=== PATIENT | female | born 1980 | race Hispanic/Latino ===

== ENCOUNTER 2016-12-13 09:22 | Inpatient (IN) | payer MEDICAID ==
--- NOTE | 2016-12-12 22:00 | History and Physical Report ---
History of Present Illness Date of examination: 12/12/16 Date of admission: 12/13/16 Chief complaint: here for cs and tl History of present illness: Pt presents for repeat c/s with TL.All risks,benefits and alternatives were d/w pt and questions were addressed and answered. Consents were signed and placed on the chart. Past History : 4 Term Births: 2 Premature Births: 0 Living Children: 2 Para: 2 Prev : 2 Elect. Ab: 0 Spont. Ab: 1 Ectopics: 0 # 1 Delivery date: 2000 Delivery type: SAB Comments: 16 weeks, s/p fall down stairs D&C # 2 Delivery date: 01/17/2005 Weeks Gestation: 42 Delivery type: Hours of labor: 38 Anesthesia type: epidural Delivery location: [facility] Sex: Female weight: 8-7 Name: Padmaja # 3 Delivery date: 05/31/2015 Weeks Gestation: 37 Delivery type: Anesthesia type: Spinal Delivery location: [facility] Infant Sex: male weight: 6.69 Name: Billy Comments: pre-eclampsia/eclampsia Past Medical History: Anemia Depression Hypotension left breast cyst removed - age 17 Past Surgical History: Reviewed history from 05/31/2015 and no changes required: c/s x2 Past Medical History Anesthesia Complications: negative Anemia: positive Autoimmune Disorder: negative Bleeding Disorder: negative Blood Transfusions: negative Breast Disease: negative Diabetes: negative Heart Disease: negative Hypertension: positive, Pre-e x 2 Hepatitis/Liver Disease: negative Kidney Disease/UTI: negative Neurologic/Epilepsy/Migraines: negative Phlebitis/Varicosities: negative Psychiatric: positive, depression Pulmonary Disease/Asthma: negative Thyroid Disease: negative Hospitalizations: negative 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 Patient has been counseled to quit. Infection History Hx of STD: none HIV Risk Eval: no Hepatitis B Risk Eval: low risk Personal hx. of genital herpes: no Partner hx. of genital herpes: no Rash, Viral, or Febrile illness since last LMP? no Varicella/Chicken Pox Status: Previous Disease TB Risk: no Infection History Comments: FOB family + Hep B, pt states he takes shot every 5- 10 years Genetic History ADVANCED MATERNAL AGE Congenital Heart Defect: Mom: no Dad: no Janie Disease: Mom: no Dad: no Thalassemia Mom: no Dad: no Neural Tube Defect Mom: no Dad: no Down's Syndrome Mom: no Dad: no Milton-Sachs Mom: no Dad: no Sickle Cell Disease/Trait Mom: no Dad: no Hemophilia Mom: no Dad: no Muscular Dystrophy Mom: no Dad: no Cystic Fibrosis Mom: no Dad: no Cerrillos Chorea Mom: no Dad: no Mental Retardation Mom: no Dad: no Fragile X Mom: no Dad: no Other Genetic/Chromosomal Disorder Mom: no Dad: yes Comments: G6PD, brother born with "blood cancer" Child w/other defect Mom: no Dad: no Enviromental Exposures Xray Exposure: no Medication, drug, or alcohol use since LMP: no Chemical/Other Exposure: no Exposure to Cat Liter: yes Hx of Parvovirus (Fifth Disease): no Occupational Exposure to Children: none Past History Past Medical History: other (see hpi) Past Surgical History: section (x2), 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 [employer]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 Family/Genetic History: other (see hpi) - Obstetrical History Expected Date of Delivery: 12/16/16 Actual Gestation: 39 Week(s) 3 Day(s) : 4 Para: 2 Hx # Term Pregnancies: 2 Spontaneous Abortions: 1 Number of Living Children: 2 Medications and Allergies Allergies Allergy/AdvReac Type Severity Reaction Status Date / Time nickel Allergy Hives Verified 02/25/15 20:11 cephalexin monohydrate AdvReac Intermediate Swelling Verified 10/27/16 11:54 [From Keflex] Home Medications Medication Instructions Recorded Confirmed Last Taken Type Pnv with Ca,No.72/Iron/FA 1 tab PO DAILY 05/31/15 10/27/16 10/23/16 09:00 History [ Plus Tablet] 1 Review of Systems All systems: negative - Physical Exam Breasts: Positive: deferred Cardiovascular: Normal S1, Normal S2 Lungs: Positive: Clear to auscultation, Normal air movement Abdomen: Positive: normal appearance, soft. Negative: distention, tenderness, guarding Genitourinary (Female): Positive: other (deferred) - Obstetrical FHR: auscultation normal Results All other labs normal. Assessment and Plan - Patient Problems (1) Previous delivery affecting Status: Acute Plan to address problem: -to OR for repeat c/s -all risk, benefits, and alternatives were d/w pt and questions were addressed and answered -consents signed and placed on the chart (2) Sterilization Status: Acute Plan to address problem: -pt desires permanent sterilization -all risk, benefits and alternatives were d/w pt -Consents signed and placed on the chart.
[~2016-12-13 09:22] MED LIST: GARAMYCIN 0 MG in NACL 0.9% 100 ML IV SCH
[2016-12-13] MEDS ORDERED: LACTATED RINGERS 1,000 ML ONE (10:04)
[2016-12-13 10:19] LABS: Basophils % (Auto) 0.6 % (0.0-1.8); Eosinophils % (Auto) 0.9 % (0.0-4.3); Hematocrit 36.9 % (30.3-42.9); Hemoglobin 12.1 gm/dl (10.1-14.3); Mean Corpuscular HGB Conc 33 % (30-34); Mean Corpuscular Hemoglobin 29 pg (28-32); Mean Corpuscular Volume 88 fl (79-97); Platelet Count 219 K/mm3 (140-440); Red Blood Count 4.19 M/mm3 (3.65-5.03); Red Cell Distribution Width 15.4 % (13.2-15.2)
--- NOTE | 2016-12-13 10:37 | Anesthesia Consultation ---
Anesthesia Consult and Med Hx Date of service: 12/13/16 - Airway Anesthetic Teeth Evaluation: Good ROM Head & Neck: Adequate Mental/Hyoid Distance: Adequate Mallampati Class: Class II Intubation Access Assessment: Probably Good - Pre-Operative Health Status ASA Pre-Surgery Classification: ASA2 Proposed Anesthetic Plan: Epidural, Spinal - Pulmonary Hx Asthma: No COPD: No Hx Pneumonia: No - Cardiovascular System Hx Hypertension: No - Central Nervous System Hx Seizures: No Hx Psychiatric Problems: No - Gastrointestinal Hx Gastroesophageal Reflux Disease: Yes - Endocrine Hx Renal Disease: No Hx End Stage Renal Disease: No Hx Hypothyroidism: No Hx Hyperthyroidism: No - Hematic Hx Anemia: No Hx Sickle Cell Disease: No - Other Systems Hx Alcohol Use: No
--- NOTE | 2016-12-13 10:38 | Anesthesia Day of Surgery ---
Anesthesia Day of Surgery - Day of Surgery Patient Examined: Yes Patient H&P Reviewed: Yes Patient is NPO: Yes
[2016-12-13] MEDS ORDERED: CLEOCIN 600 MG/50 mL 50 ML IV NR (11:00)
[2016-12-13] MEDS ORDERED: ZOFRAN IV PRN ×2 (11:00→18:45)
[2016-12-13] MEDS ORDERED: DILAUDID IV PRN (11:00)
[2016-12-13] MEDS ORDERED: PITOCin/NS 20 UNIT/1000ML DRIP 1,000 ML IV NR (11:00)
[2016-12-13] MEDS ORDERED: SODIUM CHLORIDE FLUSH SYRINGE 10 ML IV PRN (11:00)
[2016-12-13] MEDS ORDERED: PEPCID IV NR (11:00)
[2016-12-13] MEDS ORDERED: NARCAN 0.4 MG/1 ML IV PRN ×2 (11:00→13:07)
[2016-12-13] MEDS ORDERED: LACTATED RINGERS 1,000 ML IV NR (11:00)
[2016-12-13] MEDS ORDERED: TORADOL IV PRN (11:00)
[2016-12-13] MEDS ORDERED: REGLAN IV NR (11:00)
[2016-12-13] MEDS ORDERED: BICITRA PO NR (11:00)
[2016-12-13] MEDS ORDERED: BENADRYL IV PRN (11:00)
[2016-12-13] MEDS ORDERED: NACL 0.9% IR ONE (11:40)
[2016-12-13] MEDS ORDERED: WATER FOR IRRIG STERILE IR ONE (11:40)
[2016-12-13] MEDS ORDERED: MORPHINE ONE (11:46)
[2016-12-13] MEDS ORDERED: GENTAMICIN IV NR (12:00)
[2016-12-13] MEDS ORDERED: SODIUM CHLORIDE IV NR (12:00)
[2016-12-13] MEDS ORDERED: TUCKS PAD TP PRN (13:07)
[2016-12-13] MEDS ORDERED: LANSINOH TP PRN (13:07)
--- NOTE | 2016-12-13 13:20 | Operative Report ---
Operative Report Operative Report: Date of procedure: 12/13/2016 Pre-operative diagnosis: 39 weeks gestation Previous section 2 Desires permanent sterilization Post-operative diagnosis: Same Procedure name(s): Repeat low transverse section via Pfannenstiel skin incision Bilateral tubal ligation via modified Kartik method Surgeon: Dr. Lew Chronic Specialist: Ms. Aisha Meléndez CST Anesthesia: Spinal EBL: 600 mL Urine output: 50 mL clear urine at the end of the procedure Fluids: 1300 mL Findings: Liveborn female weight 7 lbs. 12 oz. Apgars of 9 and 9 at one and 5 minutes Normal fallopian tubes and ovaries bilaterally Indications: Patient presents for repeat section. All risks benefits and alternatives were discussed with the patient. Patient was given ample time to ask questions all of which were addressed. Consents were signed and placed on the chart. Patient also desired permanent sterilization. Again all risks benefits and alternatives were discussed with patient. Patient was given ample time to ask questions. Consents were signed and placed on the chart. Patient was taken to the operating room for repeat section with tubal ligation. Procedure: Patient was taking to the operating room. Patient was then prepped and draped in sterile fashion after anesthesia was found to be adequate. A low transverse skin incision was made with the scalpel through previous incisional scar and carried down to the underlying layer of fascia with the Bovie. The fascia was then incised in the midline and this incision was extended bilaterally with the Bovie. The superior aspect of the fascia was grasped with Cori clamps tented upward and dissected off of the anterior rectus muscles with the scalpel. In similar fashion the inferior aspect of the fascia was grasped with Cori clamps tented upward and dissected off of the anterior rectus muscles. The rectus muscles were then sharply divided in the midline. The peritoneum was identified and entered into sharply. The Jong retractor was placed. A lower transverse uterine incision was made with the scalpel and extended bilaterally with the bandage scissors. Artificial rupture of membranes was performed yielding amniotic fluid. The 's head was then delivered atraumatically. The anterior shoulder and rest of infant delivered without difficulty. The umbilical cord was clamped x2. The cord was cut. The was then placed in sterile bassinet. Cord blood was collected The placenta was manually extracted in its entirety. The uterus was exteriorized and cleared of all clots and debris. The uterine incision was closed using 0 Vicryl in a running locking fashion. Several figure of 8 sutures were placed along the uterine incision with 0 Vicryl with excellent hemostasis being noted. Attention was then turned to the fallopian tubes. The fallopian tube was grasp with the Blairs clamp, suture ligated, and transected. This was done bilaterally. The ostia of the tube bilaterally was cauterized with the Bovie. The posterior cul-de-sac was copiously irrigated. The uterus was returned to the abdomen. The Jong retractor was removed from the abdomen. The gutters were also irrigated. The anterior rectus muscles were reapproximated using 3-0 Vicryl. The anterior rectus fascia was reapproximated using 0 Vicryl in a running fashion. The subcuticular fat was reapproximated using 2-0 Vicryl in a running fashion. The skin was reapproximated with 4-0 Monocryl with a subcuticular stitch. The patient tolerated the procedure well. Sponge lap and needle counts were all correct x3. Patient was taken to the recovery room awake and in stable condition.
[2016-12-13] MEDS ORDERED: D5LR 1,000 ML IV SCH (14:00)
[2016-12-13] MEDS ORDERED: PITOCin/NS 20 UNIT/1000ML DRIP 1,000 ML IV SCH (14:00)
[2016-12-13] MEDS ORDERED: CLEOCIN 600 MG/50 mL 50 ML IV SCH ×2 (14:00→18:00)
[2016-12-13] MEDS: PERCOCET 5/325 PO PRN ×2 (16:15→22:55)
[2016-12-13] MEDS: MOTRIN PO PRN (22:55)
[2016-12-14] MEDS: PERCOCET 5/325 PO PRN ×5 (04:41→20:38)
[2016-12-14] MEDS: MOTRIN PO PRN ×3 (04:42→18:00)
[2016-12-14] MEDS ORDERED: CLEOCIN 600 MG/50 mL 50 ML IV SCH (05:00)
--- NOTE | 2016-12-14 12:04 | Progress Note ---
Assessment and Plan - Patient Problems (1) Previous delivery affecting Current Visit: Yes Status: Acute (2) Status post delivery Current Visit: Yes Status: Acute Plan to address problem: Patient doing well we'll continue post protocol Subjective - Subjective Date of service: 12/14/16 Interval history: Patient refused post op H/H last pm Patient reports: appetite normal, voiding normally, pain well controlled Objective - Vital Signs Latest vital signs: Vital Signs Temp Pulse Pulse Pulse Resp BP BP 12/14/16 08:05 98.3 F 80 16 108/51 12/14/16 05:20 98.2 F 93 H 18 113/66 12/14/16 01:50 98.2 F 94 H 20 106/64 12/13/16 21:00 97.8 F 94 H 20 108/63 12/13/16 16:15 20 12/13/16 16:00 97.4 F L 72 18 97/52 12/13/16 14:15 97.7 F 76 13 107/61 12/13/16 14:00 84 12 105/60 12/13/16 13:45 76 13 110/59 12/13/16 13:30 81 14 108/52 12/13/16 13:25 84 12 107/51 12/13/16 13:20 83 14 112/56 12/13/16 13:15 97.6 F 85 14 110/46 Pulse Ox 12/14/16 08:05 12/14/16 05:20 12/14/16 01:50 12/13/16 21:00 12/13/16 16:15 12/13/16 16:00 12/13/16 14:15 94 12/13/16 14:00 94 12/13/16 13:45 95 12/13/16 13:30 95 12/13/16 13:25 95 12/13/16 13:20 97 12/13/16 13:15 97 Intake and Output 12/13/16 12/14/16 12/14/16 22:59 06:59 14:59 Intake Total 1270 240 500 Output Total 600 1500 Balance 670 -1260 500 Intake: IV 550 D5lr 1,000 ml @ 125 mls/ 500 hr IV DIRECT CARLOS Rx#: [id number] CLEOCIN 600 MG/50 mL 50 50 ML @ 100 mls/hr IV Q8H CARLOS Rx#:[id number] Oral 720 500 Intake, Free Water 240 Output: Urine 600 1500 Void 600 Indwelling Catheter 1500 Other: Total, Intake Amount 360 500 Total, Output Amount 600 1500 # Voids Void 1 1 - Exam Breasts: Present: deferred Cardiovascular: Present: Regular rate Lungs: Present: Normal air movement Abdomen: Present: normal appearance, soft Uterus: Present: normal Incision: Present: normal, dry
[2016-12-14] MEDS ORDERED: BOOSTRIX IM ONE (13:08)
[2016-12-14 13:34] LABS: Hematocrit 28.9 % (30.3-42.9); Hemoglobin 9.7 gm/dl (10.1-14.3)
[2016-12-15] MEDS: PERCOCET 5/325 PO PRN ×3 (00:59→08:50)
[2016-12-15] MEDS: MOTRIN PO PRN ×2 (00:59→06:22)
[2016-12-15 09:15] VITALS: BP 111/54
--- NOTE | 2016-12-15 09:18 | Discharge Summary ---
Providers - Providers Date of Admission: 12/13/16 09:22 Date of discharge: 12/15/16 Attending physician: ANTHONY MONTES DE OCA Primary care physician: TEO KURTZ Hospitalization Reason for admission: section Delivery: Procedure: section, bilateral tubal ligation Incision: normal, suppurative, intact complications: none Discharge diagnosis: IUP at term delivered baby: female Hospital course: Patient was admitted and underwent above procedure without complications. Her post operative course was benign she was afebrile throughout. Patient postoperative day 1 hematocrit was in an acceptable range. Patient had no orthostatic symptoms. Patient was tolerating regular diet and voiding without difficulty at time of discharge. Patient incision was healing well without evidence of infection. Condition at discharge: Good Disposition: DISCHARGED TO HOME OR SELFCARE - Discharge Diagnoses (1) Previous delivery affecting Status: Acute (2) Status post delivery Status: Acute Plan - Discharge Medications Prescriptions: Ibuprofen [Motrin 800 MG tab] 800 mg PO Q8HR PRN #30 tablet PRN Reason: Pain oxyCODONE /ACETAMINOPHEN [Percocet 5/325] 1 tab PO Q4HR #30 tab - Provider Discharge Summary Activity: routine, no sex for 6 weeks, no heavy lifting 4 weeks, no strenuous exercise Diet: routine Instructions: routine Additional instructions: [] Smoking cessation referral if applicable(refer to patient education folder for contact #) [] Refer to [facility]'s [facility] Center Booklet Call your doctor immediately for: * Fever > 100.5 * Heavy vaginal bleeding ( >1 pad per hour) * Severe persistent headache * Shortness of breath * Reddened, hot, painful area to leg or breast * Drainage or odor from incision. * Keep incision clean and dry at all times and follow doctor's instructions regarding bathing/showering She to keep scheduled postop appointment
--- NOTE | 2016-12-18 12:21 | Query-Anemia ---
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 Questions asked do not imply a particular answer is desired or expected. We greatly appreciate your clarification on this issue. Clinical Documentation States: 36 y/o f admitted 12/13/16 for C- section delivery. Patient was noted to have EBL 600ml. Clinical Findings Show: [x] Hb_12-9.7 ;[x] Hct_[id number] Please clarify the etiology below; [ X] Anemia due to acute blood loss [ ] Anemia due to chronic blood loss [ ] Anemia secondary to ESRD [ ] Anemia secondary to neoplastic disease [ ] Iron deficiency anemia due to malabsorption [ ] GI Bleed from: [ ] Anemia of chronic disease ,Other: [ ] Precipitous Drop in Hemoglobin [ ] Precipitous Drop in Hematocrit [ ] Other: [ ] Unable to determine [ ] Comment/Explanation: Present on Admission: [ ] Yes (Y) [ ] Clinically undeterminable (W) [ x ] No (N) Please also document response in your Progress Notes and/or Discharge Summary and indicate if the condition was present on admission. MTDD
== END 2016-12-15 15:00 | disposition home or self-care (01) | DRG 765 ==
LOC: APU 09:22 → OB 15:15
PROVIDERS: ADMIT Obstetrics & Gynecology; ATTEND Obstetrics & Gynecology
PROC: 10D00Z1 Extraction of Products of Conception, Low, Open Approach (ICD-10-PCS; principal; 2016-12-13)
PROC: 0UL70ZZ Occlusion of Bilateral Fallopian Tubes, Open Approach (ICD-10-PCS; 2016-12-13)
DX: O34.211 Maternal care for low transverse scar from previous cesarean delivery (principal); D62 Acute posthemorrhagic anemia; O99.344 Other mental disorders complicating childbirth; O99.62 Diseases of the digestive system complicating childbirth; K21.9 Gastro-esophageal reflux disease without esophagitis; Z37.0 Single live birth; Z3A.39 39 weeks gestation of pregnancy; Z88.8 Allergy status to other drugs, medicaments and biological substances; Z30.2 Encounter for sterilization
CPT/HCPCS: 36415; 85014; 85018; 85025; 86850; 86900; 86901; 88302; 90471; A6250; C9250; J1580; J2270; J2405; J2590; J2765; J7120; J7121